=== PATIENT | male | born 1945 | race Caucasian/White ===

== ENCOUNTER 2020-03-06 11:46 | Outpatient (CLI) | payer MEDICARE, OTHER, SELFPAY ==
--- NOTE | ~2020-03-06 | XR_ITS ---
EXAMINATION: XR chest 2V DATE: 03/06/2020 13:59 INDICATION: Hypertension. Preop. TECHNIQUE: Frontal and lateral views of the chest were obtained. COMPARISON: None. FINDINGS: The chest demonstrates clear lungs without pneumonia, pleural effusion, or pneumothorax. Th e heart size is normal. IMPRESSION: 1. No acute cardiopulmonary disease. Reviewed, dictated and finalized at location A.
--- NOTE | 2020-03-06 12:52 | ECG_ITS ---
Measurements Intervals [place] Rate: 65 P: 47 VA: 205 QRS: -14 QRSD: 93 T: 31 QT: 382 QTc: 397 Interpretive Statements SINUS RHYTHM BORDERLINE AV CONDUCTION DELAY POOR R WAVE PROGRESSION, ANTERIOR LEADS BASELINE ARTIFACT- I, II, III, AVR, AVF BORDERLINE ECG Electronically Signed On 03-06-2020 13:46:44 CDT by Cornell Unger D.O.
[2020-03-06 14:08] LABS: Basophils Absolute Auto 0.1 K/mm3 (0.0-0.1); Basophils Percent Auto 0.8 % (0.2-1.2); Eosinophils Absolute Auto 0.1 K/mm3 (0-0.3); Eosinophils Percent Auto 1.2 % (0-4.4); Hematocrit 41.4 % (42.0-52.0); Hemoglobin 14.6 g/dL (14.0-18.0); Immature Granulocyte Absolute 0.04 K/mm3 (0.00-0.031); Immature Granulocyte Percent A 0.6 % (0-0.5); Lymphocytes Absolute Auto 1.32 K/mm3 (0.9-3.2); Lymphocytes Percent Auto 18.2 % (18.3-44.2); Mean Corpuscular HGB Conc 35.3 g/dl (32-36); Mean Corpuscular Hemoglobin 32.8 pg (26-34); Mean Platelet Volume 9.8 fl (7.4-10.4); Monocytes Absolute Auto 0.8 K/mm3 (0.1-0.6); Neutrophils Percent Auto 68.2 % (45.5-73.1); Platelet Count Result 151 k/mm3 (150-375); Red Blood Count 4.45 M/mm3 (4.6-6.20); Red Cell Distribution Width 13.2 % (11.5-14.5); White Blood Count 7.3 K/mm3 (4.5-10.0)
[2020-03-06 14:18] LABS: Urine Cotinine NEGATIVE
[2020-03-06 14:20] LABS: Albumin Level 4.3 g/dL (3.5-5.1); Anion Gap 9 mmol/L (8-16); Blood Urea Nitrogen 20 mg/dL (9-20); Calcium 9.2 mg/dL (8.4-10.2); Carbon Dioxide 32 mmol/L (22-30); Chloride 94 mmol/L (98-107); Estimated Glomerular Filt Rate 59; Glucose 108 mg/dL (75-110); Hemoglobin A1C 5.7 % (<5.7); Potassium 3.5 mmol/L (3.4-5.0); Sodium 135 mmol/L (137-145)
== END 2020-03-06 11:47 | disposition home or self-care (01) ==
PROVIDERS: PCP Internal Medicine; Visit Provider Orthopaedic Surgery
DX: M16.12 Unilateral primary osteoarthritis, left hip (principal); Z01.818 Encounter for other preprocedural examination; I45.9 Conduction disorder, unspecified
CPT/HCPCS: 71046; 80048; 80307; 82040; 83036; 85025; 87070; 87077; 87186; 93005

== ENCOUNTER 2020-03-17 00:44 | Outpatient (CLI) | payer MEDICARE, OTHER, SELFPAY ==
[2020-03-17 20:27] LABS: SARS-CoV-2 RNA PCR Negative
== END 2020-03-17 00:45 | disposition home or self-care (01) ==
LOC: ANHCOVIDDT 00:44
PROVIDERS: PCP Internal Medicine; Visit Provider Orthopaedic Surgery
DX: Z01.812 Encounter for preprocedural laboratory examination (principal); Z20.828 Contact with and (suspected) exposure to other viral communicable diseases
CPT/HCPCS: 87635; C9803; U0003

== ENCOUNTER → 2020-03-20 00:33 | Day surgery (SDC) | payer MEDICARE, OTHER, SELFPAY ==
[2020-03-06 12:49] VITALS: BMI 31.8
[2020-03-06 12:51] VITALS: BP 157/83; PULSE 69; RESP 16; TEMP 37.3; O2SAT 99
--- NOTE | 2020-03-17 12:06 | PM.IMHP ---
H&P: HPI History of Present Illness Date/Time: 03/17/20 12:06 Chief complaint: sever OA left hip Narrative: Jose Luis Pozo is a [address] Blackwood who presents today for a left total hip arthroplasty anterior approach. He has been having pain for over 2 years in this left. He had his right hip replaced in [place] approximately 3 years ago and is doing well. He has severe arthritis on the x-rays. He has symptoms on a daily basis and is fairly miserable. Most of his pain is in the medial groin and anterior lateral hip. He has reached a point where he feels he is ready to proceed with total arthroplasty rather continue nonsurgical treatment. Review of Systems Review of Systems: All systems reviewed & are unremarkable except as noted in HPI and below PMFSH Past Medical History Medical History Benign essential tremor Benign prostatic hyperplasia HTN (hypertension) Prediabetes Surgical History Surgical History History of hip replacement Family History Family History Father Hypertension Mother Hypertension Social History Social History Smoking status: Never smoker Second hand tobacco smoke exposure: No Smoking end date: 05/12/70 Additional smoking assessment comments: DENIES ANY FORM OF TOBACCO/NICOTINE USE Alcohol intake: current Drinks per week: 2 Spiritual care concerns: No Meds Home Medications and Allergies Home Medications Medication Instructions Recorded Confirmed Type primidone 250 mg tablet 250 mg PO QAM tablet 04/06/19 03/06/20 History naproxen sodium [Aleve] 440 mg PO QAM 03/06/20 03/06/20 History alfuzosin 10 mg tablet,extended 10 mg PO QPM #90 tablet 03/07/20 03/07/20 Rx release 24 hr amlodipine 10 mg tablet 10 mg PO DAILY #90 tablet 03/07/20 03/07/20 Rx atorvastatin 10 mg tablet 10 mg PO QPM #90 tablet 03/07/20 03/07/20 Rx lisinopril 10 mg tablet 10 mg PO DAILY #90 tablet 03/07/20 03/07/20 Rx metoprolol succinate 200 mg 200 mg PO DAILY #90 tablet 03/07/20 03/07/20 Rx tablet,extended release 24 hr triamterene 37.5 1 tablet PO QAM #90 tablet 03/07/20 03/07/20 Rx mg-hydrochlorothiazide 25 mg tablet Allergies Allergy/AdvReac Type Severity Reaction Status Date / Time No Known Allergies Allergy Verified 03/06/20 11:56 Exam Narrative: Exam Narrative: 74-year-old male alert pleasant no distress. He is 5 ft 10 to 126 lb. Well leg spine is left leg looks about 0.25 in shorter period his left hip flexes to 100? causing him anterior lateral and lateral hip pain, internal rotation lacks 10? short of neutral, external rotation is to 30?. Stinchfield maneuver causes him mild anterior lateral hip pain. He has minimal tenderness over the greater trochanter is normal abduction strength. 2+ posterior tibial pulse, absent dorsalis pedis pulse. Normal sensation left lower extremity. Skin around the hip is normal. He walks with a mild limp. He has no edema in either lower extremity. Resp: Auscultation: clear to auscultation bilaterally Cardio: Rate: regular rate Rhythm: regular rhythm Assessment and Plan Additional Plan 74-year-old male who has severe arthritis with continued symptoms in the left hip. Again he feels he is ready to proceed with total hip arthroplasty at this point. Surgical procedures well as the risks and complications were discussed in detail and all questions were answered and we will proceed. Patient will see his primary care doctor for pre-surgical clearance. His nasal swab did grow oxacillin sensitive Staph aureus which has been decolonization since 03/14. His creatinine was 1.20 with a GFR of 59, the rest of his Chem panel is within normal limits. Hemoglobin is 14.6 and platelets were 151.
[2020-03-20 06:45] VITALS: BP 136/72; PULSE 69; RESP 18; TEMP 36.8; O2SAT 98
[2020-03-20] MEDS: ACETAMINOPHEN 500 MG TABLET 1000 MG PO (06:48)
[2020-03-20] MEDS: TRANEXAMIC ACID 1,000MG/ISO100 1,000 MG/100 ML BAG 200 MG IVPB (06:49)
[2020-03-20] MEDS: KETOROLAC 15 MG/ML VIAL (*BKC) IV PUSH (06:49)
[2020-03-20] MEDS: LACTATED RINGERS 1,000 ML 30 ML IV CONT (06:50)
--- NOTE | 2020-03-20 06:58 | WPDANESEPPF ---
Anes - Initial Pre Proc Eval Procedure: Operation Date: 03/20/20 07:30 Proposed Procedures p Left Total Hip Arthroplasty, Anterior Approach - Mehdi Webb MD Date/Time: 03/20/20 06:58 Surgeon: Mehdi Webb MD Pre Op Diagnosis: severe OA left hip Patient Data Age: 74 Gender: M Height: 6 ft Weight: 106.5 kg Last Vital Signs Temp 37.3 C 03/06/20 12:51 Pulse 69 03/06/20 12:51 Resp 16 03/06/20 12:51 BP 157/83 H 03/06/20 12:51 Pulse Ox 99 03/06/20 12:51 Allergies Allergy/AdvReac Type Severity Reaction Status Date / Time No Known Allergies Allergy Verified 03/06/20 11:56 Home Medications Medication Instructions Recorded Confirmed Type primidone 250 mg tablet 250 mg PO QAM tablet 04/06/19 03/06/20 History naproxen sodium [Aleve] 440 mg PO QAM 03/06/20 03/06/20 History alfuzosin 10 mg tablet,extended 10 mg PO QPM #90 tablet 03/07/20 03/07/20 Rx release 24 hr amlodipine 10 mg tablet 10 mg PO DAILY #90 tablet 03/07/20 03/07/20 Rx atorvastatin 10 mg tablet 10 mg PO QPM #90 tablet 03/07/20 03/07/20 Rx lisinopril 10 mg tablet 10 mg PO DAILY #90 tablet 03/07/20 03/07/20 Rx metoprolol succinate 200 mg 200 mg PO DAILY #90 tablet 03/07/20 03/07/20 Rx tablet,extended release 24 hr triamterene 37.5 1 tablet PO QAM #90 tablet 03/07/20 03/07/20 Rx mg-hydrochlorothiazide 25 mg tablet Patient hx anesthesia problems: none Family hx anesthesia problems: none PMFSH Past Medical History Medical History Benign essential tremor Benign prostatic hyperplasia CKD (chronic kidney disease) HTN (hypertension) Hyperlipidemia Prediabetes Surgical History Surgical History History of hip replacement Family History Family History Father Hypertension Mother Hypertension Social History Social History Smoking status: Never smoker Second hand tobacco smoke exposure: No Smoking end date: 05/12/70 Additional smoking assessment comments: DENIES ANY FORM OF TOBACCO/NICOTINE USE Alcohol intake: current Drinks per week: 2 Alcohol use details: BEER Living arrangements: with family Spiritual care concerns: No Anes - Eval Final PreProcedure Day of Procedure 03/20/20 06:58 Patient weight: obese Heart: regular rate and rhythm Lungs: clear to auscultation Airway: Mallampati scale class II Neurological: alert and oriented Last oral intake: >/= 8 hours ASA classification: III Emergent: no Anesthetic plan: proceed Anesthesia type and monitoring: general ETT and standard monitoring Informed Consent: The patient's anesthetic plan and its attendant risks and benefits were discussed with the patient/family/POA. Questions were solicited and answers provided to the satisfaction of the patient/family/POA.
--- NOTE | 2020-03-20 07:12 | WPDHPUPDATE1 ---
History and Physical Update Update Date/Time: 03/20/20 07:12 History and Physical has been reviewed, including an updated exam of the patient. There are NO changes in the patient's condition. Risks, benefits, and alternatives have been discussed and questions answered. Patient agrees to proceed with procedure.
--- NOTE | 2020-03-20 07:43 | PM.PNORT ---
Progress Note: A&P Additional Plan The hospital was unable to obtain foot pedal for OR bed. Dr Webb was notified, we will postpone surgery for the time until pedal can be replaced. Subjective Subjective Date/Time Seen: 03/20/20 07:43 Objective Data Meds/Results Medications: Active Medications Generic Name Dose Route Start Last Admin Trade Name Freq PRN Reason Stop Dose Admin Fentanyl Citrate 25 mcg 03/20/20 06:59 Fentanyl Citrate Inj (*Crx) 100 Mcg/2 Ml Vial IV PUSH Q2M PRN Pain Vancomycin HCl 1,500 mg in 500 mls @ 333.333 mls/hr 03/20/20 06:17 03/20/20 06:52 Vancomycin 1,500 Mg/D5w 500 Ml IVPB 03/20/20 07:46 333.33 mls/hr ONCE ONE Administration Lactated Ringer's 1,000 mls @ 30 mls/hr 03/20/20 06:50 03/20/20 06:50 Lr - Lactated Ringers Iv IV CONT 30 mls/hr .Q24H VERONICA Administration Lactated Ringer's 1,000 mls @ 30 mls/hr 03/20/20 07:00 Lr - Lactated Ringers Iv IV CONT .Q24H VERONICA Ondansetron HCl 4 mg 03/20/20 06:59 Ondansetron Inj 4 Mg/2 Ml Vial IV PUSH ONCE PRN Nausea
== END | disposition home or self-care (01) ==
PROVIDERS: PCP Internal Medicine; Visit Provider Orthopaedic Surgery
PROC: (CPT 27130; principal; 2020-03-20 07:30)
DX: M16.12 Unilateral primary osteoarthritis, left hip (principal); Z53.8 Procedure and treatment not carried out for other reasons
CPT/HCPCS: 36415; 86850; 86900; 86901; 99212; A9270; G0463; J0171; J0690; J1885; J2270; J2795; J3010; J3370; J7120

== ENCOUNTER 2020-05-03 10:42 | Emergency (ER) | payer MEDICARE, OTHER, SELFPAY ==
[2020-05-03 10:49] VITALS: BP 154/90; PULSE 94; RESP 16; TEMP 36.6; O2SAT 100
--- NOTE | 2020-05-03 11:11 | ED.URI ---
HPI - URI/Sore Throat General Chief Complaint: Upper Respiratory Infection Stated Complaint: sinus drainage Time Seen by Provider: 05/03/20 10:57 Source: patient and RN notes reviewed Mode of arrival: ambulatory Limitations: no limitations History of Present Illness HPI Narrative: Patient presents today complaining of a 1 month history of sinus congestion, bilateral sinus pressure, copious postnasal drip, rhinorrhea, and occasional cough, likely due to postnasal drainage. Denies nasal congestion, sore throat, ear pain, fever, shortness of breath. He was seen via televisit by his primary care provider and was instructed to take Claritin, use Flonase and Coricidin HBP. States these medications do help with his symptoms, but his symptoms return once these medications wear off. MD elicited complaint: nasal congestion and sinus pain Related Data Home Medications Medication Instructions Recorded Confirmed primidone 250 mg tablet 250 mg PO QAM tablet 04/06/19 05/03/20 naproxen sodium [Aleve] 440 mg PO QAM 03/06/20 05/03/20 tramadol 50 mg PO TID PRN 05/03/20 05/03/20 Allergies Allergy/AdvReac Type Severity Reaction Status Date / Time No Known Allergies Allergy Verified 05/03/20 11:02 Review of Systems Review of Systems: Narrative: CONSTITUTIONAL: Denies body aches, fever, chills, or sweats. EYES: Denies visual changes, redness, or discharge. ENT: Denies rhinorrhea, sore throat, or otalgia.+ Postnasal drip, congestion, rhinorrhea CARDIOVASCULAR: Denies chest pain, palpitations, or edema. RESPIRATORY: Denies cough or dyspnea. GASTROINTESTINAL: Denies abdominal pain, nausea, vomiting, or diarrhea. GENITOURINARY: Denies dysuria or hematuria. SKIN: Denies rash, itching, or wounds. MUSCULOSKELETAL: Denies back pain, joint pain, or myalgia. NEUROLOGIC: Denies headache, numbness, tingling, or weakness. PSYCH: Denies depression or anxiety. [facility] Past Medical History Medical History Benign essential tremor Benign prostatic hyperplasia CKD (chronic kidney disease) HTN (hypertension) Hyperlipidemia Prediabetes Surgical History Surgical History History of hip replacement Family History Family History Father Hypertension Mother Hypertension Social History Social History Smoking status: Never smoker Second hand tobacco smoke exposure: No Smoking end date: 05/12/70 Additional smoking assessment comments: DENIES ANY FORM OF TOBACCO/NICOTINE USE Alcohol intake: current Drinks per week: 2 Spiritual care concerns: No Comments At time of signature, I have reviewed and agree with nursing past medical, surgical, social and family history unless otherwise noted. Please see nursing chart for further information. There is no relevant family history pertinent to the presenting complaint Exam Narrative: Exam Narrative: GENERAL: Well-appearing, well-nourished, and in no acute distress. HEAD: Normocephalic, atraumatic. EYES: EOMI. No redness or drainage. Conjunctivae normal. ENT: Mucous membranes pink and moist. Bilateral nasal turbinates erythematous and edematous. No rhinorrhea. TMs normal bilaterally. Throat normal. Uvula midline. NECK: Normal AROM. Supple. No lymphadenopathy. CHEST: No respiratory distress. Clear to auscultation. HEART: Regular rate and rhythm. No murmur appreciated. Normal peripheral pulses. EXTREMITIES: Normal range of motion. No edema. SKIN: Warm, dry, no rash. Capillary refill normal. Normal skin turgor. NEURO: No focal deficits. Alert and oriented x3. Gait steady. PSYCH: Normal affect. No signs of depression or anxiety. Course Vital Signs Vital signs: Vital Signs Temperature 97.9 F 05/03/20 10:49 Pulse Rate 94 05/03/20 10:49 Res
== END 2020-05-03 11:26 | disposition home or self-care (01) ==
PROVIDERS: Emergency Provider Nurse Practitioner; PCP Internal Medicine
DX: J01.00 Acute maxillary sinusitis, unspecified (principal); N40.0 Benign prostatic hyperplasia without lower urinary tract symptoms; I12.9 Hypertensive chronic kidney disease with stage 1 through stage 4 chronic kidney disease, or unspecified chronic kidney disease; N18.9 Chronic kidney disease, unspecified; R73.03 Prediabetes; E78.5 Hyperlipidemia, unspecified; Z96.649 Presence of unspecified artificial hip joint
CPT/HCPCS: 99213; G0463

== ENCOUNTER 2020-07-03 09:51 | Outpatient (CLI) | payer MEDICARE, OTHER, SELFPAY ==
[2020-07-03 10:54] LABS: Basophils Absolute Auto 0.1 K/mm3 (0.0-0.1); Basophils Percent Auto 0.9 % (0.2-1.2); Eosinophils Percent Auto 0.6 % (0-4.4); Hematocrit 43.2 % (42.0-52.0); Hemoglobin 15.5 g/dL (14.0-18.0); Immature Granulocyte Absolute 0.02 K/mm3 (0.00-0.031); Immature Granulocyte Percent A 0.3 % (0-0.5); Lymphocytes Absolute Auto 1.36 K/mm3 (0.9-3.2); Lymphocytes Percent Auto 20.4 % (18.3-44.2); Mean Corpuscular HGB Conc 35.9 g/dl (32-36); Mean Corpuscular Hemoglobin 32.6 pg (26-34); Mean Corpuscular Volume 90.8 fl (80-100); Monocytes Absolute Auto 0.5 K/mm3 (0.1-0.6); Monocytes Percent Auto 8.1 % (2.6-8.5); Neutrophils Absolute Auto 4.7 K/mm3 (1.3-6.7); Neutrophils Percent Auto 69.7 % (45.5-73.1); Platelet Count Result 155 k/mm3 (150-375); Red Blood Count 4.76 M/mm3 (4.6-6.20); Red Cell Distribution Width 12.8 % (11.5-14.5); White Blood Count 6.7 K/mm3 (4.5-10.0)
[2020-07-03 11:07] LABS: Hemoglobin A1C 5.7 % (<5.7)
[2020-07-03 11:08] LABS: Albumin Level 4.3 g/dL (3.5-5.1); Anion Gap 6 mmol/L (8-16); Blood Urea Nitrogen 17 mg/dL (9-20); Calcium 9.4 mg/dL (8.4-10.2); Carbon Dioxide 32 mmol/L (22-30); Chloride 96 mmol/L (98-107); Estimated Glomerular Filt Rate 54; Glucose 111 mg/dL (75-110); Potassium 3.9 mmol/L (3.4-5.0); Sodium 134 mmol/L (137-145); Urine Cotinine NEGATIVE
== END 2020-07-03 09:52 | disposition home or self-care (01) ==
LOC: ANHSURGERY 09:54
PROVIDERS: PCP Internal Medicine; Visit Provider Orthopaedic Surgery
DX: M16.12 Unilateral primary osteoarthritis, left hip (principal); Z01.818 Encounter for other preprocedural examination
CPT/HCPCS: 80048; 80307; 82040; 83036; 85025; 86850; 86900; 86901; 87070; 87077; 87186

== ENCOUNTER → 2020-07-07 00:38 | Outpatient (CLI) | payer MEDICARE, OTHER, SELFPAY ==
[2020-07-07 17:47] LABS: SARS-CoV-2 RNA PCR Negative
== END ==
PROVIDERS: PCP Internal Medicine; Visit Provider Orthopaedic Surgery
DX: Z01.812 Encounter for preprocedural laboratory examination (principal); Z20.822 Contact with and (suspected) exposure to COVID-19
CPT/HCPCS: C9803; U0003; U0005

== ENCOUNTER 2020-07-10 01:07 | Day surgery (SDC) | payer MEDICARE, OTHER, SELFPAY ==
[2020-07-03 10:00] VITALS: BMI 32.8
[2020-07-03 10:34] VITALS: BP 168/80; PULSE 70; RESP 16; TEMP 37.2; O2SAT 98
--- NOTE | 2020-07-07 11:32 | PM.IMHP ---
H&P: HPI History of Present Illness Date/Time: 07/07/20 11:32 <VERONICA Roque - Last Filed: 07/07/20 11:38> Chief Complaint: Left hip DJD <VERONICA Roque - Last Filed: 07/07/20 11:38> Narrative: Jose Luis Pozo is a 74 year old male Patient of Who presents today for a left anterior total hip arthroplasty. He has been having pain in his left hip for several years. He had his right hip replaced in [place] approximately 3 years ago and is doing very well. He has severe arthritis in the left hip. He continues to be very symptomatic for him on a daily basis. He is feels at this point is ready to proceed with total hip arthroplasty. <VERONICA Roque - Last Filed: 07/07/20 11:38> Review of Systems Review of Systems: All systems reviewed & are unremarkable except as noted in HPI and below <VERONICA Roque - Last Filed: 07/07/20 11:38> [facility] Past Medical History Medical History: Medical History Benign essential tremor Benign prostatic hyperplasia CKD (chronic kidney disease) HTN (hypertension) Hyperlipidemia Prediabetes <VERONICA Roque - Last Filed: 07/07/20 11:38> Surgical History Surgical History: Surgical History History of hip replacement <VERONICA Roque - Last Filed: 07/07/20 11:38> Family History Family History: Family History Father Hypertension Mother Hypertension <VERONICA Roque - Last Filed: 07/07/20 11:38> Social History Social History: Social History Smoking status: Never smoker Second hand tobacco smoke exposure: No Additional smoking assessment comments: DENIES ANY FORM OF TOBACCO/NICOTINE USE Alcohol intake: current Drinks per week: 2 Alcohol use details: ONE DRINK PER MONTH Living arrangements: with family Spiritual care concerns: No <VERONICA Roque - Last Filed: 07/07/20 11:38> Meds Home Medications and Allergies Home medications: Home Medications Medication Instructions Recorded Confirmed Type primidone 250 mg tablet 250 mg PO QAM tablet 04/06/19 07/10/20 History naproxen sodium [Aleve] 440 mg PO QAM 03/06/20 07/10/20 History alfuzosin 10 mg tablet,extended 10 mg PO QPM #90 tablet 03/07/20 07/10/20 Rx release 24 hr atorvastatin 10 mg tablet 10 mg PO QPM #90 tablet 03/07/20 07/10/20 Rx lisinopril 10 mg tablet 10 mg PO DAILY #90 tablet 03/07/20 07/10/20 Rx triamterene 37.5 1 tablet PO QAM #90 tablet 03/07/20 07/10/20 Rx mg-hydrochlorothiazide 25 mg tablet acetaminophen [Tylenol Arthritis 650 mg PO Q12H PRN 07/03/20 07/10/20 History Pain] amlodipine 10 mg PO QPM 07/03/20 07/10/20 History metoprolol succinate 200 mg PO QAM 07/03/20 07/10/20 History <VERONICA Roque Last Filed: 07/07/20 11:38> Allergies/Adverse reactions: Allergies Allergy/AdvReac Type Severity Reaction Status Date / Time No Known Allergies Allergy Verified 07/10/20 06:06 <VERONICA Roque Last Filed: 07/07/20 11:38> Exam Narrative: Exam Narrative: 74-year-old male alert pleasant. He is 5 ft 10 to 122 lb. He walks with a mild limp. He is using a cane powerhouse oiler at this point. Left hip flexes to 90 and fully extends. His hip is locked in about 10? of external rotation. He has [id number] pain with any range of motion. Pain is in the groin and anterior thigh. He is unable to Stinchfield maneuver due to pain. Has no swelling left lower extremity. 2+ dorsalis pedis pulse in his foot. No numbness tingling in the foot. Skin is all normal around the hip and groin crease. <VERONICA Roque Last Filed: 07/07/20 11:38> Resp: Auscultation: clear to auscultation bilaterally <VERONICA Roque - Last Filed: 07/07/20 11:38> Cardio: Rate: regular rate
[2020-07-10] VITALS (14 sets, daily range): BP systolic 118–139; BP diastolic 58–90; PULSE 66–104; RESP 9–18; TEMP 36.2–36.9; O2SAT 95–100; BMI 32.5
--- NOTE | ~2020-07-10 | XR_ITS ---
EXAMINATION: XR surgery orthopedic DATE: 07/10/2020 11:33 INDICATION: Anterior approach left total hip arthroplasty. TECHNIQUE: A single fluoroscopic spot image of the left hip was obtained during procedure performed misbah Webb. Radiologist was not present for the imaging or procedure. The amount of fluoroscopy ti me used during this procedure was 0.7 minutes. COMPARISON: None. FINDINGS: Noncemented left total hip arthroplasty which is in near-anatomic alignment on the single provided fr ontal projection. The acetabular component is affixed with at least a single screw. No fracture. Expe cted postoperative gas in the soft tissues of the operative bed. IMPRESSION: 1. Noncemented left total hip arthroplasty in near-anatomic alignment. Reviewed, dictated and finalized at location B. [facility] [employer]
--- NOTE | ~2020-07-10 | XR_ITS ---
EXAMINATION: XR hip LT 1V w AP pelvis DATE: 07/10/2020 11:34 INDICATION: Postoperative evaluation following anterior left hip repair TECHNIQUE: Anteroposterior and cross-table lateral views of the left hip were obtained. COMPARISON: None. FINDINGS: Bilateral noncemented total hip arthroplasties in near-anatomic alignment, presumably recently placed on the left with small amount of postoperative gas in the surrounding soft tissues. No fracture. Muna gical drain in the soft tissues anterolateral to the left hip. IMPRESSION: 1. Bilateral total hip arthroplasties in near-anatomic alignment, presumably The left and negative for postoperative purposes. Reviewed, dictated and finalized at location B. [place] [employer]
[2020-07-10] MEDS: ACETAMINOPHEN 500 MG TABLET 1000 MG PO ×2 (06:14→17:05)
[2020-07-10] MEDS: LACTATED RINGERS 1,000 ML 30 ML IV CONT ×2 (06:32→11:34)
--- NOTE | 2020-07-10 06:46 | WPDANESEPPF ---
Anes - Initial Pre Proc Eval Procedure: Operation Date: 07/10/20 07:30 Proposed Procedures p Left Total Hip Arthroplasty, Anterior Approach - Mehdi Webb MD Date/Time: 07/10/20 06:46 Surgeon: Mehdi Webb MD Pre Op Diagnosis: severe OA left hip Patient Data Age: 74 Gender: M Height: 1.83 m Weight: 109 kg Last Vital Signs Temp 37.2 C 07/03/20 10:34 Pulse 70 07/03/20 10:34 Resp 16 07/03/20 10:34 BP 168/80 H 07/03/20 10:34 Pulse Ox 98 07/03/20 10:34 Allergies Allergy/AdvReac Type Severity Reaction Status Date / Time No Known Allergies Allergy Verified 07/10/20 06:06 Home Medications Medication Instructions Recorded Confirmed Type primidone 250 mg tablet 250 mg PO QAM tablet 04/06/19 07/10/20 History naproxen sodium [Aleve] 440 mg PO QAM 03/06/20 07/10/20 History alfuzosin 10 mg tablet,extended 10 mg PO QPM #90 tablet 03/07/20 07/10/20 Rx release 24 hr atorvastatin 10 mg tablet 10 mg PO QPM #90 tablet 03/07/20 07/10/20 Rx lisinopril 10 mg tablet 10 mg PO DAILY #90 tablet 03/07/20 07/10/20 Rx triamterene 37.5 1 tablet PO QAM #90 tablet 03/07/20 07/10/20 Rx mg-hydrochlorothiazide 25 mg tablet acetaminophen [Tylenol Arthritis 650 mg PO Q12H PRN 07/03/20 07/10/20 History Pain] amlodipine 10 mg PO QPM 07/03/20 07/10/20 History metoprolol succinate 200 mg PO QAM 07/03/20 07/10/20 History Patient hx anesthesia problems: none Family hx anesthesia problems: none PMFSH Past Medical History Medical History Benign essential tremor Benign prostatic hyperplasia CKD (chronic kidney disease) HTN (hypertension) Hyperlipidemia Prediabetes Surgical History Surgical History History of hip replacement Family History Family History Father Hypertension Mother Hypertension Social History Social History Smoking status: Never smoker Second hand tobacco smoke exposure: No Additional smoking assessment comments: DENIES ANY FORM OF TOBACCO/NICOTINE USE Alcohol intake: current Drinks per week: 2 Alcohol use details: ONE DRINK PER MONTH Living arrangements: with family Spiritual care concerns: No Anes - Eval Final PreProcedure Day of Procedure 07/10/20 06:46 Patient weight: obese Heart: regular rate and rhythm Lungs: clear to auscultation and normal air movement Airway: Mallampati scale class II Neurological: alert and oriented Last oral intake: >/= 8 hours ASA classification: III Emergent: no Anesthetic plan: proceed Anesthesia type and monitoring: general ETT Informed Consent: The patient's anesthetic plan and its attendant risks and benefits were discussed with the patient/family/POA. Questions were solicited and answers provided to the satisfaction of the patient/family/POA.
[2020-07-10] MEDS: TRANEXAMIC ACID 1,000MG/ISO100 1,000 MG/100 ML BAG 200 MG IVPB (07:00)
--- NOTE | 2020-07-10 07:21 | WPDHPUPDATE1 ---
History and Physical Update Update Date/Time: 07/10/20 07:21 History and Physical has been reviewed, including an updated exam of the patient. There are NO changes in the patient's condition. Risks, benefits, and alternatives have been discussed and questions answered. Patient agrees to proceed with procedure. Heavy growth ELAINE on nasal swab.
--- NOTE | 2020-07-10 07:29 | SUR.PREOP ---
Patient has tremors to hands to the extent he couldn't hold the water cup when given tylenol.
[2020-07-10] MEDS: ceFAZolin 2 GM/D5W 50 ML 2 GM/50 ML BAG IVPB (07:37)
[2020-07-10] MEDS: ceFAZolin SODIUM 1 GM VIAL 3 GM IRRIGATION (08:10)
[2020-07-10] MEDS: ceFAZolin SODIUM 1 GM VIAL IV PUSH (10:53)
[2020-07-10] MEDS: TRANEXAMIC ACID 1,000 MG/10 ML AMPUL 1000 MG IV PUSH (10:53)
--- NOTE | 2020-07-10 11:11 | PM.PROC ---
Procedure Note - Detailed Date of procedure: 07/10/20 Pre-op diagnosis: severe OA left hip Post-op diagnosis: same Procedure performed: Left total hip replacement, direct anterior approach Implants: Actis Depuy Anesthesia: GETA Surgeon: Mehdi Webb MD Adolescent Specialist: Dann Estimated blood loss (mL): 350 Drains: Yes Packing: No Pathology: none sent Complications: No immediate complications Condition: stable Disposition: PACU Findings: 125 cell saver returned
--- NOTE | 2020-07-10 11:13 | PM.PROC ---
Procedure Note - Detailed Date of procedure: 07/10/20 Pre-op diagnosis: severe OA left hip Surgeon: Mehdi Webb MD
[2020-07-10] MEDS: fentaNYL CITRATE INJ (*CRX) 100 MCG/2 ML VIAL 25 MCG IV PUSH ×5 (11:58→12:37)
--- NOTE | 2020-07-10 13:25 | ADMGEN ---
This patient, Jose Luis Pozo, was admitted to Medical Room 248-. Patient/family oriented to hospital policies and general routines including ID bracelet, bed and alarms, visiting hours, pain management, procedures, bathroom and other care routines, personal items, smoking policy, room service/diet, and visiting hours. Information on how to activate the Rapid Response Team has been discussed. Patient/Family are encouraged to report perceived risks to care and to ask questions if they do not understand what they are told or what they should do.
[2020-07-10] MEDS: oxyCODONE HCL (*CRX) 5 MG TAB IR PO ×3 (15:03→21:20)
[2020-07-10 15:25] LABS: Hematocrit 38.9 % (42.0-52.0); Hemoglobin 13.8 g/dL (14.0-18.0)
[2020-07-10] MEDS: SENNA/DOCUSATE SODIUM TABLET 2 TAB PO (17:04)
[2020-07-10] MEDS: amLODIPine BESYLATE 5 MG TABLET 10 MG PO (18:09)
[2020-07-10] MEDS: ATORVASTATIN 10 MG TABLET PO (18:09)
[2020-07-10] MEDS: FAMOTIDINE 20 MG TABLET PO (21:20)
[2020-07-10] MEDS: APIXABAN 2.5 MG TABLET PO (21:20)
--- NOTE | 2020-07-10 21:36 | PM.IMCN ---
Assessment and Plan Assessment and plan (1) Status post total hip replacement, left: Code(s): Z96.642 - Presence of left artificial hip joint Status: Acute Assessment and Plan: Postop care per Orthopedic. DVT prophylaxis per Orthopedic. The patient has bilateral TEDs as well as SCDs on. Patient was also placed on Eliquis. PT and OT per orthopedic. Discharge summary per orthopedic physician pain management per Orthopedic physician. (2) Benign prostatic hyperplasia: Code(s): N40.0 - Benign prostatic hyperplasia without lower urinary tract symptoms Status: Acute Assessment and Plan: The patient stated that he has no difficulty urinating at this time. (3) Benign essential tremor: Code(s): G25.0 - Essential tremor Status: Acute Assessment and Plan: The patient is on primidone and will continue with that. (4) HTN (hypertension): Qualifiers: Hypertension type: essential hypertension Qualified Code(s): I10 - Essential (primary) hypertension Code(s): I10 - Essential (primary) hypertension Status: Acute Assessment and Plan: . Amlodipine was continued per Ortho. Metoprolol was continued per Ortho. Triamterene and hydrochlorothiazide were continued per Ortho. Please monitor BMP closely HPI Data of Consult Consult date: 07/10/20 Requesting Physician: Mehdi Webb MD Primary Care Provider: Jose Luis Rangel DO Consult Narrative Narrative: Jose Luis Pozo is a 74 year old male the patient has severe osteoarthritis to bilateral hips. The patient has had a right total hip performed at [place] several years ago approximately 3 years ago and has been doing well. The patient stated that he has had injection in his left hip on certain occasions and had physical therapy. The patient stated that he was having difficulty sleeping due to the discomfort of left hip. He was found to have severe osteoarthritis of the left hip. He has had pain in that left hip for several years and he could not tolerate it any further. The patient decided to proceed with a left total hip arthroplasty anterior procedure. Please see the operative note. The patient has a past medical history of hypertension and hyperlipidemia. There for the hospitalist group was asked to consult on the patient. Id the patient appears to been admitted to observation are regular same-day surgery. The hospitalist group was asked to consult on the patient due to his medical history. Patient was consulted on the date of service of 07/10/2020. Review of Systems Review of Systems: All systems reviewed & are unremarkable except as noted in HPI and below Constitutional: Constitutional: Reports as per HPI and Reports no additional constitutional complaints Eyes: Eyes: Reports as per HPI and Reports no additional eye complaints ENT: Reports system reviewed and no additional complaints, except as documented and Reports Normal hearing present Cardiovascular: Cardiovascular: Reports no additional cardiovascular complaints Respiratory: Respiratory: Reports no additional respiratory complaints and Reports no additional respiratory complaints Gastrointestinal: Gastrointestinal: Reports as per HPI and Reports no additional gastrointestinal complaints Musculoskeletal: Musculoskeletal: Reports no additional musculoskeletal complaints Integumentary/Breasts: Skin/Breast: Reports system reviewed and no additional complaints, except as docu and Reports as per HPI Neurologic: Reports system reviewed and no additional complaints, except as documented, Reports as per HPI and Reports Normal hearing present Psychiatric: Psychiatric: Reports no additional psychiatric complaints and Reports as per HPI Endocrine: Endocrine: Reports no additional endocrine complaints Hematologic/Lymphatic: Hematologic/Lymphatic: Reports no additional hematologic/lymphatic complaints Allergic/Immunologic: Allergic/Im
[2020-07-11] MEDS: ACETAMINOPHEN 500 MG TABLET 1000 MG PO ×2 (00:19→05:21)
[2020-07-11] MEDS: oxyCODONE HCL (*CRX) 5 MG TAB IR PO ×3 (00:57→08:13)
[2020-07-11 01:50] VITALS: BP 139/76; PULSE 92; RESP 18; TEMP 36.8; O2SAT 98
[2020-07-11 05:09] VITALS: BP 139/73; PULSE 93; RESP 16; TEMP 36.7; O2SAT 98
[2020-07-11 05:33] LABS: Basophils Percent Auto 0.2 % (0.2-1.2); Hematocrit 36.6 % (42.0-52.0); Hemoglobin 13.1 g/dL (14.0-18.0); Immature Granulocyte Absolute 0.09 K/mm3 (0.00-0.031); Immature Granulocyte Percent A 0.6 % (0-0.5); Lymphocytes Absolute Auto 1.77 K/mm3 (0.9-3.2); Lymphocytes Percent Auto 12.3 % (18.3-44.2); Mean Corpuscular HGB Conc 35.8 g/dl (32-36); Mean Corpuscular Hemoglobin 32.9 pg (26-34); Mean Platelet Volume 10.1 fl (7.4-10.4); Monocytes Absolute Auto 1.7 K/mm3 (0.1-0.6); Monocytes Percent Auto 11.5 % (2.6-8.5); Neutrophils Absolute Auto 10.8 K/mm3 (1.3-6.7); Neutrophils Percent Auto 75.4 % (45.5-73.1); Platelet Count Result 146 k/mm3 (150-375); Red Blood Count 3.98 M/mm3 (4.6-6.20); White Blood Count 14.3 K/mm3 (4.5-10.0)
[2020-07-11 05:48] LABS: Anion Gap 11 mmol/L (8-16); Blood Urea Nitrogen 19 mg/dL (9-20); Calcium 8.4 mg/dL (8.4-10.2); Carbon Dioxide 25 mmol/L (22-30); Chloride 94 mmol/L (98-107); Estimated CRCL calculation 55 ml/min; Estimated Glomerular Filt Rate 54; Glucose 141 mg/dL (75-110); Potassium 3.6 mmol/L (3.4-5.0); Sodium 130 mmol/L (137-145)
--- NOTE | 2020-07-11 06:20 | PM.PNORT ---
Progress Note: A&P Additional Plan POD 1 aleert pain is well controlled, drain is out, pt was up walking yesterday doing well NVI, labs-noted, plan for pt to do morning PT then discharge home Subjective Subjective Date/Time Seen: 07/11/20 06:20 Objective Data Vital Signs Vital Signs: Vital Signs - 24 hr 07/10/20 06:45 07/10/20 11:34 07/10/20 11:45 Temperature 36.9 C 36.6 C Pulse Rate 66 87 75 Respiratory Rate 16 10 L 16 Blood Pressure 136/69 118/58 L 138/67 Pulse Oximetry 98 100 100 07/10/20 11:55 07/10/20 12:05 07/10/20 12:15 Temperature Pulse Rate 79 78 78 Respiratory Rate 16 16 18 Blood Pressure 128/78 139/70 125/69 Pulse Oximetry 98 99 96 07/10/20 12:30 07/10/20 12:45 07/10/20 13:15 Temperature 36.3 C L Pulse Rate 78 79 85 Respiratory Rate 9 L 18 16 Blood Pressure 135/90 129/67 130/74 Pulse Oximetry 97 100 97 07/10/20 13:30 07/10/20 14:00 07/10/20 15:00 Temperature 36.2 C L 36.3 C L 36.5 C Pulse Rate 104 H 76 93 Respiratory Rate 16 16 16 Blood Pressure 136/82 121/82 134/73 Pulse Oximetry 99 95 95 07/10/20 18:05 07/10/20 22:00 07/11/20 01:50 Temperature 36.9 C 36.7 C 36.8 C Pulse Rate 96 95 92 Respiratory Rate 17 16 18 Blood Pressure 138/82 123/73 139/76 Pulse Oximetry 99 97 98 07/11/20 05:09 Temperature 36.7 C Pulse Rate 93 Respiratory Rate 16 Blood Pressure 139/73 Pulse Oximetry 98 Intake/Output Intake/Output: Intake & Output 07/08/20 07/09/20 07/10/20 07/11/20 23:59 23:59 23:59 23:59 Intake Total 1910 700 Output Total 5 200 Balance 1905 500 Meds/Results Medications: Active Medications Generic Name Dose Route Start Last Admin Trade Name Freq PRN Reason Stop Dose Admin Acetaminophen 1,000 mg 07/10/20 18:00 07/11/20 05:21 Acetaminophen 500 Mg Tablet PO 1,000 mg Q6HR VERONICA Administration Al Hydrox/Mg Hydrox/Simethicone 30 ml 07/10/20 11:33 Mag Hydrox/Al Hydrox/Simeth 30 Ml Udc PO Q6H PRN Indigestion Alfuzosin HCl 10 mg 07/10/20 18:00 07/10/20 18:09 Alfuzosin 10 Mg Er Tablet PO 10 mg QPM VERONICA Administration Amlodipine Besylate 10 mg 07/10/20 18:00 07/10/20 18:09 Amlodipine Besylate 5 Mg Tablet PO 10 mg QPM VERONICA Administration Apixaban 2.5 mg 07/10/20 21:00 07/10/20 21:20 Apixaban 2.5 Mg Tablet PO 2.5 mg Q12HR VERONICA Administration Atorvastatin Calcium 10 mg 07/10/20 18:00 07/10/20 18:09 Atorvastatin 10 Mg Tablet PO 10 mg QPM VERONICA Administration Celecoxib 200 mg 07/11/20 09:00 Celecoxib 200 Mg Capsule PO DAILY VERONICA Cephalexin HCl 500 mg 07/11/20 12:00 Cephalexin 500 Mg Capsule PO 07/18/20 12:01 Q6HR VERONICA Famotidine 20 mg 07/10/20 21:00 07/10/20 21:20 Famotidine 20 Mg Tablet PO 20 mg Q12HR VERONICA Administration Fentanyl Citrate 25 mcg 07/10/20 06:45 07/10/20 12:37 Fentanyl Citrate Inj (*Crx) 100 Mcg/2 Ml Vial IV PUSH 25 mcg Q2M PRN Administration Pain Hydromorphone HCl 0.25 mg 07/10/20 06:45 Hydromorphone Hcl Inj (*Crx) 1 Mg/Ml Syr IV PUSH Q5M PRN Pain Hydroxyzine HCl 50 mg 07/10/20 11:33 Hydroxyzine Hcl 25 Mg Tablet PO Q4H PRN Itching Vancomycin HCl 1,000 mg in 250 mls @ 250 mls/hr 07/10/20 18:00 07/11/20 05:22 Vancomycin 1,000 Mg/D5w 250 Ml IVPB 07/11/20 06:59 250 mls/hr Q12H VERONICA Administration Cefazolin Sodium 1 gm in 50 mls @ 100 mls/hr 07/10/20 16:00 07/11/20 00:17 Ancef 1 Gm/D5w 50 Ml Pm IVPB 07/11/20 08:29 100 mls/hr Q8H VERONICA Administration Magnesium Hydroxide 30 ml 07/10/20 11:33 Magnesium Hydroxide Susp 30 Ml Udc PO BID PRN Constipation Metoprolol Succinate 200 mg 07/11/20 09:00 Metoprolol Succinate Ext Rel 100 Mg Tabcr PO QAM VERONICA Morphine Sulfate 2 mg 07/10/20 11:33 Morphine Sulfate (*Crx) 2 Mg/Ml Inj IV PUSH Q3H PRN Pain Rated 7-10 Naloxone HCl 0.1 mg 07/10/20 11:33 Naloxone Hcl 0.4 Mg/Ml Vial IV PUSH Q2M PRN
--- NOTE | 2020-07-11 06:26 | PM.DS ---
DS: Admitting Diagnosis Admitting Diagnosis Admitting Diagnosis: Left hip DJD DS: Summary Hospital Course Reason for hospitalization: 74-year-old male who underwent left anterior total hip arthroplasty on 07/10/2020 Dr. Webb. Underwent the procedure without any complications postoperatively he has been afebrile vital Signs: Stable neurovascular intact his wound is dry. He is weight-bearing as tolerated on the left leg. His drain is out. He is on Eliquis for DVT prophylaxis. He is also on Tylenol and oxycodone 5s as well as Celebrex once a day for pain control. The Celebrex be for 1st 2 weeks only. Patient did well on the day of surgery he was up walking with therapy as comfortable as pain is well controlled. He will be discharged home 3- 2. He also, will go home on Senokot and MiraLax. Hemoglobin postop day 1 was 13.1. On his Chem panel sodium was low at 130 the rest of his Chem panel is within normal limits. He is not having any symptoms from the low sodium. Overall patient has done well and is comfortable and is eager to home. We will plan on sending him home later today. Hospital Course: uneventful DS: Data Data Completed and Pending Labs on day of discharge: Labs from last 24 hours 07/11/20 07/11/20 07/10/20 05:14 05:14 15:16 WBC 14.3 H RBC 3.98 L Hgb 13.1 L 13.8 L Hct 36.6 L 38.9 L MCV 92.0 MCH 32.9 MCHC 35.8 RDW 13.0 Plt Count 146 L MPV 10.1 Immature Gran % (Auto) 0.6 H Neut % (Auto) 75.4 H Lymph % (Auto) 12.3 L Eagle % (Auto) 11.5 H Eos % (Auto) 0.0 Baso % (Auto) 0.2 Lymph # (Auto) 1.77 Eagle # (Auto) 1.7 H Eos # (Auto) 0.0 Baso # (Auto) 0.0 Abs Immat Gran (auto) 0.09 H Absolute Neuts (auto) 10.8 H Absolute Nucleated RBC 0.0 Nucleated RBC % 0.0 Sodium 130 L Potassium 3.6 Chloride 94 L Carbon Dioxide 25 Anion Gap 11 BUN 19 Creatinine 1.30 Estim Creat Clear Calc 55 Estimated GFR 54 L Glucose 141 H Calcium 8.4 Discharge Plan Discharge Patient Disposition: Home, Self-Care Discharge Instructions: MEHDI WEBB M.D [facility], [place] [id number] [place] [address] POST-OPERATIVE DISCHARGE INSTRUCTIONS ANTERIOR TOTAL HIP ARTHROPLASTY 1. Move toes/feet up and down every hour while awake. 2. Be up walking every hour while awake. 3. Use cane in hand opposite of side of hip surgery or walker as comfort allows. Avoid sitting in a chair unless eating, receiving visitors or using the toilet. 4. When resting, lie on back with leg elevated above heart to minimize swelling. Significant swelling could indicate a blood clot and if this occurs, call the office (or go to the ER) to have a venous ultrasound performed. 5. Wound Care: Keep dry sponge on wound for 2 weeks. Use minimal tape. 6. Follow weight bearing status as instructed. 7. May shower with dressing off. Patient Instructions: Pain Management (DC), Precautions after Total Joint Replacement Surgery (ED), Total Hip Replacement (DC) Follow-up/Referrals: Mehdi Webb MD [Physician] - Keep Reg. Scheduled Appt. Discharge Medications: New acetaminophen 500 mg Tablet 1,000 mg PO Q6HR Qty: 90 RF: 0 Eliquis 2.5 mg Tablet 2.5 mg PO Q12HR Qty: 69 RF: 0 celecoxib [Celebrex] 200 mg Capsule 200 mg PO DAILY Qty: 14 RF: 0 cephalexin 500 mg Capsule 500 mg PO Q6HR Qty: 28 RF: 0 sennosides-docusate sodium [Senokot-S] 8.6-50 mg Tablet 2 tab-cap PO BID Qty: 60 RF: 0 oxycodone 5 mg Tablet 5 mg PO Q4HR Qty: 40 RF: 0 polyethylene glycol 3350 [Miralax] 17 gram Powder In Packet 17 g PO QAM Qty: 30 RF: 0 Continued primidone 250 mg tablet 250 mg PO QAM RF: 0 alfuzosin 10 mg tablet extended release 24 hr 10 mg PO QPM Qty: 90 RF: 2 atorvastatin 10 mg tablet 10 mg PO QPM Qty: 90 RF: 2 lisinopril 10 mg tablet 1
--- NOTE | 2020-07-11 08:06 | P.PNAN_ITS ---
Anes - Prog Note Post-Op Date/Time: 07/11/20 08:06 Cardiovascular status: normal Respiratory status: normal Airway patency: baseline Mental status: baseline Post-Op hydration status: normal Vital Signs: Last Vital Signs Temp 36.7 C 07/11/20 05:09 Pulse 93 07/11/20 05:09 Resp 16 07/11/20 05:09 BP 139/73 07/11/20 05:09 Pulse Ox 98 07/11/20 05:09 Pain Score (VAS): 3 I/O: Intake & Output 07/10/20 07/11/20 07/11/20 23:59 07:59 15:59 Intake Total 720 1000 Output Total 5 200 Balance 715 800 Laboratory Tests 07/11/20 05:14 07/11/20 05:14 07/10/20 07/11/20 07/11/20 15:16 05:14 05:14 WBC 14.3 H RBC 3.98 L Hgb 13.8 L 13.1 L Hct 38.9 L 36.6 L MCV 92.0 MCH 32.9 MCHC 35.8 RDW 13.0 Plt Count 146 L MPV 10.1 Immature Gran % (Auto) 0.6 H Neut % (Auto) 75.4 H Lymph % (Auto) 12.3 L [place] % (Auto) 11.5 H Eos % (Auto) 0.0 Baso % (Auto) 0.2 Lymph # (Auto) 1.77 [place] # (Auto) 1.7 H Eos # (Auto) 0.0 Baso # (Auto) 0.0 Abs Immat Gran (auto) 0.09 H Absolute Neuts (auto) 10.8 H Absolute Nucleated RBC 0.0 Nucleated RBC % 0.0 Sodium 130 L Potassium 3.6 Chloride 94 L Carbon Dioxide 25 Anion Gap 11 BUN 19 Creatinine 1.30 Estim Creat Clear Calc 55 Estimated GFR 54 L Glucose 141 H Calcium 8.4 Post-procedural complaints: none Patient Feedback: Patient satisfied with anesthetic care.
[2020-07-11] MEDS: CELECOXIB 200 MG CAPSULE PO (08:12)
[2020-07-11] MEDS: SENNA/DOCUSATE SODIUM TABLET 2 TAB PO (08:12)
[2020-07-11] MEDS: FAMOTIDINE 20 MG TABLET PO (08:12)
[2020-07-11] MEDS: APIXABAN 2.5 MG TABLET PO (08:12)
[2020-07-11 08:13] VITALS: PULSE 83
[2020-07-11] MEDS: METOPROLOL SUCCINATE EXT REL 100 MG TABCR 200 MG PO (08:13)
[2020-07-11] MEDS: TRIAMTERENE 37.5 MG/HCTZ 25 MG (MAXZIDE) TABLET 1 TAB PO (08:13)
[2020-07-11] MEDS: polyethylene glycoL 3350 17 GM POWD.PACK PO (08:14)
[2020-07-11] MEDS: PRIMIDONE 250 MG TABLET PO (08:14)
[2020-07-11 09:19] VITALS: BP 101/66; PULSE 87; RESP 15; TEMP 36.3; O2SAT 97
--- NOTE | 2020-07-11 10:00 | PM.IMPN ---
Progress Note: A&P Assessment and Plan (1) Status post total hip replacement, left: Code(s): Z96.642 - Presence of left artificial hip joint Status: Acute Assessment and Plan: Patient is doing well and plans to go home today -continue pain medications, DVT prophylaxis and therapy per Ortho -educated on the risk of narcotic use (2) Benign prostatic hyperplasia: Code(s): N40.0 - Benign prostatic hyperplasia without lower urinary tract symptoms Status: Acute Assessment and Plan: No acute symptoms (3) Benign essential tremor: Code(s): G25.0 - Essential tremor Status: Acute Assessment and Plan: Continue primidone (4) HTN (hypertension): Qualifiers: Hypertension type: essential hypertension Qualified Code(s): I10 - Essential (primary) hypertension Code(s): I10 - Essential (primary) hypertension Status: Acute Assessment and Plan: Last blood pressure 139/73 -continue metoprolol, hydrochlorothiazide, and amlodipine Time Spent With Patient Time with patient: 25 - 35 minutes Subjective Date/time seen: 07/11/20 10:00 Interval history: Pt is a 74-year-old male here for elective left hip replacement. Patient was seen today and doing well. He has some pain/tightness to the left hip which is more than yesterday but is relatively well controlled. He has been working with therapy and did well with them. He has no numbness, tingling or weakness. Pt denies nausea, vomiting, fevers, chills, constipation, diarrhea, chest pain, sob, or abdominal pain. He has been passing some gas. Review of Systems Review of Systems: All systems reviewed & are unremarkable except as noted in HPI and below Exam Narrative: Exam Narrative: General: Well developed well nourished patient in NAD HEENT: normocephalic Neck: supple Neuro: Alert and oriented x4 CV:RRR Resp:CTA Abd: Soft, non distended. No pain to palpation. Positive bowel sounds Extremities: Left hip with bandage on top of incision sites. No erythema, discharge or dehiscence. Pulses and sensation intact. Objective Data Vital Signs Vital Signs: Vital Signs - 24 hr 07/10/20 11:34 07/10/20 11:45 07/10/20 11:55 Temperature 98 F Pulse Rate 87 75 79 Respiratory Rate 10 L 16 16 Blood Pressure 118/58 L 138/67 128/78 Pulse Oximetry 100 100 98 07/10/20 12:05 07/10/20 12:15 07/10/20 12:30 Temperature Pulse Rate 78 78 78 Respiratory Rate 16 18 9 L Blood Pressure 139/70 125/69 135/90 Pulse Oximetry 99 96 97 07/10/20 12:45 07/10/20 13:15 07/10/20 13:30 Temperature 97.3 F L 97.2 F L Pulse Rate 79 85 104 H Respiratory Rate 18 16 16 Blood Pressure 129/67 130/74 136/82 Pulse Oximetry 100 97 99 07/10/20 14:00 07/10/20 15:00 07/10/20 18:05 Temperature 97.4 F L 97.7 F 98.5 F Pulse Rate 76 93 96 Respiratory Rate 16 16 17 Blood Pressure 121/82 134/73 138/82 Pulse Oximetry 95 95 99 07/10/20 22:00 07/11/20 01:50 07/11/20 05:09 Temperature 98.1 F 98.3 F 98.1 F Pulse Rate 95 92 93 Respiratory Rate 16 18 16 Blood Pressure 123/73 139/76 139/73 Pulse Oximetry 97 98 98 07/11/20 08:13 Temperature Pulse Rate 83 Respiratory Rate Blood Pressure Pulse Oximetry Intake/Output Intake/Output: Intake & Output 07/08/20 07/09/20 07/10/20 07/11/20 23:59 23:59 23:59 23:59 Intake Total 1910 1120 Output Total 5 200 Balance 1905 920 Meds/Results Medications: Active Medications Generic Name Dose Route Start Last Admin Trade Name Joshua PRN Reason Stop Dose Admin Acetaminophen 1,000 mg 07/10/20 18:00 07/11/20 05:21 Acetaminophen 500 Mg Tablet PO 1,000 mg Q6HR VERONICA Administration Al Hydrox/Mg Hydrox/Simethicone 30 ml 07/10/20 11:33 Mag Hydrox/Al Hydrox/Simeth 30 Ml Udc PO Q6H PRN Indigestion Alfuzosin HCl 10 mg 07/10/20 18:00 07/10/20 18:09 Alfuzosin 10 Mg Er Tablet PO 10 mg QPM VERONICA Administration
== END 2020-07-11 11:00 | disposition home or self-care (01) ==
LOC: ANHSURGERY 05:57 → ANH2MED 13:20
PROVIDERS: Physician Assistant Surgical; PCP Internal Medicine; Visit Provider Orthopaedic Surgery
PROC: (CPT 27130; principal; 2020-07-10 07:30)
DX: M16.12 Unilateral primary osteoarthritis, left hip (principal); I12.9 Hypertensive chronic kidney disease with stage 1 through stage 4 chronic kidney disease, or unspecified chronic kidney disease; N18.9 Chronic kidney disease, unspecified; E78.5 Hyperlipidemia, unspecified; R73.03 Prediabetes; N40.0 Benign prostatic hyperplasia without lower urinary tract symptoms; G25.0 Essential tremor; E66.9 Obesity, unspecified; Z68.32 Body mass index [BMI] 32.0-32.9, adult; Z96.641 Presence of right artificial hip joint
CPT/HCPCS: 27130; 36415; 73501; 80048; 85014; 85018; 85025; 97110; 97116; 97161; 97165; A9270; C1776; J0171; J0690; J1100; J1170; J2250; J2270; J2370; J2405; J2704; J2710; J2795; J3010; J3370; J7120

== ENCOUNTER 2020-10-03 12:05 | Emergency (ER) | payer MEDICARE, OTHER, SELFPAY ==
[2020-10-03 12:24] VITALS: BP 160/78; PULSE 65; RESP 16; TEMP 36.2; O2SAT 99
--- NOTE | 2020-10-03 12:43 | ED.LOWEXIN ---
HPI - Extremity Injury (Lower) General Chief Complaint: Extremity Problem,Nontraumatic Stated Complaint: R TOE/FOOT PAIN Time Seen by Provider: 10/03/20 12:36 Source: patient and RN notes reviewed Mode of arrival: ambulatory Limitations: no limitations History of Present Illness HPI Narrative: 74-year-old male presents to the [facility] with complaints of I have the start of the gout. A red swelling painful right great toe. Has a history of gout in the same toe. Has taken indomethacin for it in the past and states that work well for him in hte past. Pain with walking. Had a Left hip replaced 10 July 2020 Related Data Home Medications Medication Instructions Recorded Confirmed metoprolol succinate 200 mg PO QAM 07/03/20 07/10/20 Allergies Allergy/AdvReac Type Severity Reaction Status Date / Time No Known Allergies Allergy Verified 07/10/20 06:06 Review of Systems Review of Systems: All systems reviewed & are unremarkable except as noted in HPI and below Constitutional: Constitutional: Reports no additional constitutional complaints, Denies chills and Denies fever(s) Eyes: Eyes: Reports no additional eye complaints Cardiovascular: Cardiovascular: Reports no additional cardiovascular complaints and Denies chest pain Respiratory: Respiratory: Reports no additional respiratory complaints, Denies cough and Denies dyspnea Musculoskeletal: Musculoskeletal: Reports as per HPI, Reports arthralgias (right great toe) and Reports joint swelling (right great toe) Integumentary/Breasts: Skin/Breast: Reports as per HPI Comments: redness with swelling right great toe Neurologic: Reports system reviewed and no additional complaints, except as documented Psychiatric: Psychiatric: Reports no additional psychiatric complaints [facility] Past Medical History Medical History (Updated 10/03/20 @ 12:45 by Lisa Velasco) Benign essential tremor Benign prostatic hyperplasia CKD (chronic kidney disease) HTN (hypertension) Hyperlipidemia Prediabetes Surgical History Surgical History History of hip replacement Status post total hip replacement, left Family History Family History Father Hypertension Mother Hypertension Daughter Essential tremor Social History Social History Social History: 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 The patient has 6 children. His is the durable power civil rights attorney for healthcare. The patient stated for surgical purposes he desires to be a full code however he would not want to stay on a ventilator in a vegetative state. The patient is a lifelong nonsmoker and rarely drinks. No marijuana or illicit drugs. He may have a drink once a month. Smoking status: Never smoker Second hand tobacco smoke exposure: No Alcohol intake: current Drinks per week: 1 Substance use: never Substance use type: does not use Gender identity (if verbalized by the patient): Male Spiritual care concerns: No Comments At the time of my signature, I reviewed and agree with the nursing past medical, surgical, social, and family history. There is no relevant family history pertinent to the patient complaint. Exam Const: General: healthy appearing, no acute distress and alert Nutritional Appearance: well nourished Orientation/consciousness: patient oriented x3 Limitations: no limitations and altered mental status HENMT: Head: normal to inspection Neck: Neck: normal visual inspection and no lymphadenopathy Chest: Chest palpation & inspection: normal inspection of the chest Resp: Effort & Inspection: normal respiratory effort and no use of accessory muscles Auscultation: clear to auscultation bilaterally, no crackles, no rales, no rhonchi and no wheezes Cardio: Rate: regular rate Rhythm: regular rhythm Skin: Other: Erythema noted
== END 2020-10-03 12:48 | disposition home or self-care (01) ==
PROVIDERS: Emergency Provider Nurse Practitioner; PCP Internal Medicine
DX: M10.9 Gout, unspecified (principal); N40.0 Benign prostatic hyperplasia without lower urinary tract symptoms; I12.9 Hypertensive chronic kidney disease with stage 1 through stage 4 chronic kidney disease, or unspecified chronic kidney disease; N18.9 Chronic kidney disease, unspecified; E78.5 Hyperlipidemia, unspecified; R73.03 Prediabetes; Z96.642 Presence of left artificial hip joint
CPT/HCPCS: 99213; G0463

== ENCOUNTER 2022-08-23 08:57 | Outpatient (CLI) | payer MEDICARE, OTHER, SELFPAY ==
[2022-08-23 18:16] LABS: Basophils Percent Auto 0.8 % (0.2-1.2); Eosinophils Percent Auto 0.8 % (0-4.4); Hematocrit 45.2 % (42.0-52.0); Hemoglobin 15.4 g/dL (14.0-18.0); Lymphocytes Absolute Auto 1.23 K/mm3 (0.9-3.2); Lymphocytes Percent Auto 24.2 % (18.3-44.2); Mean Corpuscular HGB Conc 34.1 g/dl (32-36); Mean Corpuscular Hemoglobin 32.1 pg (26-34); Mean Corpuscular Volume 94.2 fl (80-100); Mean Platelet Volume 10.7 fl (7.4-10.4); Monocytes Absolute Auto 0.5 K/mm3 (0.1-0.6); Monocytes Percent Auto 9.4 % (2.6-8.5); Neutrophils Absolute Auto 3.3 K/mm3 (1.3-6.7); Neutrophils Percent Auto 64.8 % (45.5-73.1); Platelet Count Result 144 k/mm3 (150-375); White Blood Count 5.1 K/mm3 (4.5-10.0)
[2022-08-23 18:49] LABS: Hemoglobin A1C 5.9 % (<5.7)
[2022-08-23 18:54] LABS: Alanine Aminotransferase 30 U/L (6-50); Albumin Level 4.4 g/dL (3.5-5.1); Alkaline Phosphatase 61 U/L (38-126); Anion Gap 7 mmol/L (8-16); Aspartate Amino Transferase 32 U/L (17-59); Bilirubin,Total 0.7 mg/dL (0.2-1.3); Blood Urea Nitrogen 16 mg/dL (9-20); Calcium 9.2 mg/dL (8.4-10.2); Carbon Dioxide 31 mmol/L (22-30); Chloride 96 mmol/L (98-107); Cholesterol 134 mg/dL (0-200); Estimated Glomerular Filt Rate 53; Glucose 121 mg/dL (65-110); HDL Direct 38 mg/dL; Potassium 4.1 mmol/L (3.4-5.0); Sodium 134 mmol/L (137-145); Triglycerides 129 mg/dL (<150)
[2022-08-23 19:05] LABS: LDL Cholesterol Direct 68 mg/dL
[2022-08-23 19:22] LABS: Prostate Specific Antigen 2.7 ng/mL (< OR = 4.0)
== END 2022-08-23 08:58 | disposition home or self-care (01) ==
LOC: ANHGOSHLAB 08:59
PROVIDERS: PCP Internal Medicine; Visit Provider Nurse Practitioner
DX: Z12.5 Encounter for screening for malignant neoplasm of prostate (principal); R73.03 Prediabetes; I12.9 Hypertensive chronic kidney disease with stage 1 through stage 4 chronic kidney disease, or unspecified chronic kidney disease; N18.9 Chronic kidney disease, unspecified
CPT/HCPCS: 36415; 80053; 80061; 83036; 84153; 85025; G0103

== ENCOUNTER 2023-04-16 13:42 | Emergency (ER) | payer MEDICARE, OTHER, SELFPAY ==
[2023-04-16 14:04] VITALS: BP 161/98; PULSE 74; RESP 16; TEMP 36.3; O2SAT 100
--- NOTE | 2023-04-16 15:20 | ED.URI ---
HPI - URI/Sore Throat General Chief Complaint: Upper Respiratory Infection Stated Complaint: SINUS CONGESTION Time Seen by Provider: 04/16/23 15:20 Source: patient, RN notes reviewed and old records reviewed Mode of arrival: ambulatory Limitations: no limitations History of Present Illness HPI Narrative: 77 year old male presents to [facility] with complaints of one month duration of sinus congestion,cough, sore throat with sinus drainage now greenish in color. Patient reports that he has grandkids coming for visit and wants to be well. Patient denies any fevers chills or sweats denies any body aches.Patient reports that he has used OTC sinus medication and cold medications without resolution in his symptoms. Patient reports cough at times productive denies any shortness of breath. MD elicited complaint: cough, sore throat, rhinorrhea, nasal congestion and sinus pain Onset (ago): week(s) (4) Consistency: constant Severity: moderate Pain scale (0-10): 4 Description of mucous: green Able to tolerate fluids by mouth: Yes Treatments prior to arrival: cold medicine and other (sinus medication ) Related Data Home Medications Medication Instructions Recorded Confirmed primidone 250 mg tablet 250 mg PO QHS 02/28/21 08/23/22 Allergies Allergy/AdvReac Type Severity Reaction Status Date / Time No Known Allergies Allergy Verified 08/23/22 08:39 Review of Systems Review of Systems: CONSTITUTIONAL: Denies malaise, chills, sweats, or fever. EYES: Denies visual changes, redness, or discharge. ENT: Reports rhinorrhea, congestion, sinus pain,no otalgia and positive for sore throat. CARDIOVASCULAR: Denies chest pain, palpitations, or edema. RESPIRATORY: Reports cough.? Denies dyspnea. GASTROINTESTINAL: Denies abdominal pain, nausea, vomiting, diarrhea SKIN: Denies rash or itching. MUSCULOSKELETAL: Denies myalgia. NEUROLOGIC: reports frontal headache. 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 The patient has 6 children. His is the durable power attorney lawyer for healthcare. The patient stated for surgical purposes he desires to be a full code however he would not want to stay on a ventilator in a vegetative state. The patient is a lifelong nonsmoker and rarely drinks. No marijuana or illicit drugs. He may have a drink once a month. Smoking status: Never smoker Second hand tobacco smoke exposure: No Alcohol intake: current Drinks per week: 1 Alcohol use details: ONE DRINK PER MONTH Substance use: never Substance use type: does not use Lack of Transportation: No Lack of Food: Never True Current Housing: I Have Housing Concerned About Future Housing: No Difficulty Paying Gas/Electric Bills: No Difficulty Paying for Meds: No Currently Unemployed: No Education: Bachelor's Degree Difficulty w/ Childcare or Family Care: No Living arrangements: with family Gender identity (if verbalized by the patient): Male Sexual Orientation (if Verbalized by the Patient): Straight or Heterosexual Spiritual care concerns: No Comments At time of signature, agree with nursing past medical, surgical, social and family history. There is no relevant family history pertin
== END 2023-04-16 15:49 | disposition home or self-care (01) ==
PROVIDERS: Emergency Provider Registered Nurse; PCP Internal Medicine
DX: J01.40 Acute pansinusitis, unspecified (principal); N40.0 Benign prostatic hyperplasia without lower urinary tract symptoms; I12.9 Hypertensive chronic kidney disease with stage 1 through stage 4 chronic kidney disease, or unspecified chronic kidney disease; N18.9 Chronic kidney disease, unspecified; R73.03 Prediabetes; E78.5 Hyperlipidemia, unspecified; Z96.642 Presence of left artificial hip joint
CPT/HCPCS: 99213; G0463

== ENCOUNTER 2023-05-23 08:58 | Outpatient (CLI) | payer MEDICARE, OTHER, SELFPAY ==
[2023-05-23 19:48] LABS: Basophils Percent Auto 0.5 % (0.2-1.2); Eosinophils Percent Auto 0.5 % (0-4.4); Hematocrit 48.3 % (42.0-52.0); Hemoglobin 15.9 g/dL (14.0-18.0); Immature Granulocyte Absolute 0.02 K/mm3 (0.00-0.031); Immature Granulocyte Percent A 0.3 % (0-0.5); Lymphocytes Absolute Auto 1.33 K/mm3 (0.9-3.2); Mean Corpuscular HGB Conc 32.9 g/dl (32-36); Mean Corpuscular Hemoglobin 32.5 pg (26-34); Mean Corpuscular Volume 98.8 fl (80-100); Mean Platelet Volume 10.9 fl (7.4-10.4); Monocytes Absolute Auto 0.6 K/mm3 (0.1-0.6); Monocytes Percent Auto 10.5 % (2.6-8.5); Neutrophils Absolute Auto 3.8 K/mm3 (1.3-6.7); Neutrophils Percent Auto 65.2 % (45.5-73.1); Platelet Count Result 148 k/mm3 (150-375); Red Blood Count 4.89 M/mm3 (4.6-6.20); Red Cell Distribution Width 13.1 % (11.5-14.5); White Blood Count 5.8 K/mm3 (4.5-10.0)
[2023-05-23 19:49] LABS: Alanine Aminotransferase 42 U/L (6-50); Albumin Level 4.6 g/dL (3.5-5.1); Alkaline Phosphatase 53 U/L (38-126); Anion Gap 9 mmol/L (8-16); Aspartate Amino Transferase 44 U/L (17-59); Bilirubin,Total 0.5 mg/dL (0.2-1.3); Blood Urea Nitrogen 18 mg/dL (9-20); Calcium 9.9 mg/dL (8.4-10.2); Carbon Dioxide 30 mmol/L (22-30); Chloride 97 mmol/L (98-107); Cholesterol 161 mg/dL (0-200); Estimated Glomerular Filt Rate 58; Glucose 119 mg/dL (65-110); HDL Direct 49 mg/dL; Potassium 3.8 mmol/L (3.4-5.0); Sodium 136 mmol/L (137-145); Triglycerides 115 mg/dL (<150)
[2023-05-23 19:59] LABS: LDL Cholesterol Direct 86 mg/dL
== END 2023-05-23 08:59 | disposition home or self-care (01) ==
LOC: ANHGOSHLAB 09:01
PROVIDERS: PCP Internal Medicine; Visit Provider Nurse Practitioner
DX: I10 Essential (primary) hypertension (principal)
CPT/HCPCS: 36415; 80053; 80061; 85025

== ENCOUNTER 2023-12-04 08:11 | Outpatient (CLI) | payer MEDICARE, OTHER, SELFPAY ==
[2023-12-04 19:38] LABS: Basophils Absolute Auto 0.1 K/mm3 (0.0-0.1); Basophils Percent Auto 1.2 % (0.2-1.2); Eosinophils Absolute Auto 0.1 K/mm3 (0-0.3); Hematocrit 43.9 % (42.0-52.0); Hemoglobin 14.7 g/dL (14.0-18.0); Immature Granulocyte Absolute 0.02 K/mm3 (0.00-0.031); Immature Granulocyte Percent A 0.4 % (0-0.5); Lymphocytes Absolute Auto 1.23 K/mm3 (0.9-3.2); Mean Corpuscular HGB Conc 33.5 g/dl (32-36); Mean Corpuscular Hemoglobin 32.1 pg (26-34); Mean Corpuscular Volume 95.9 fl (80-100); Mean Platelet Volume 10.6 fl (7.4-10.4); Monocytes Absolute Auto 0.6 K/mm3 (0.1-0.6); Monocytes Percent Auto 11.3 % (2.6-8.5); Neutrophils Absolute Auto 3.2 K/mm3 (1.3-6.7); Neutrophils Percent Auto 62.1 % (45.5-73.1); Platelet Count Result 154 k/mm3 (150-375); Red Blood Count 4.58 M/mm3 (4.6-6.20); Red Cell Distribution Width 13.6 % (11.5-14.5); White Blood Count 5.1 K/mm3 (4.5-10.0)
[2023-12-04 19:57] LABS: Alanine Aminotransferase 39 U/L (6-50); Albumin Level 4.4 g/dL (3.5-5.1); Alkaline Phosphatase 46 U/L (38-126); Anion Gap 13 mmol/L (4-12); Aspartate Amino Transferase 41 U/L (17-59); Bilirubin,Total 0.5 mg/dL (0.2-1.3); Blood Urea Nitrogen 17 mg/dL (9-20); Calcium 9.1 mg/dL (8.4-10.2); Carbon Dioxide 27 mmol/L (22-30); Chloride 94 mmol/L (98-107); Estimated Glomerular Filt Rate 49; Glucose 129 mg/dL (65-110); Sodium 134 mmol/L (137-145)
[2023-12-04 20:15] LABS: Prostate Specific Antigen 2.5 ng/mL (< OR = 4.0)
[2023-12-04 21:47] LABS: Hemoglobin A1C 6.2 % (<5.7)
== END 2023-12-04 08:12 | disposition home or self-care (01) ==
LOC: ANHGOSHLAB 08:14
PROVIDERS: PCP Internal Medicine; Visit Provider Clinical Nurse Specialist
DX: N18.30 Chronic kidney disease, stage 3 unspecified (principal); D69.6 Thrombocytopenia, unspecified; Z12.5 Encounter for screening for malignant neoplasm of prostate; R73.9 Hyperglycemia, unspecified
CPT/HCPCS: 36415; 80053; 83036; 84153; 85025; G0103